=== PATIENT | male | born 1990 | race African-American/Black ===

== ENCOUNTER 2019-08-05 18:30 | Emergency (ER) | payer SELFPAY ==
[~2019-08-05] VITALS: Ht 200.7 cm; Wt 97.7 kg
[2019-08-05] MEDS ORDERED: NEOMYCIN/POLYMYXIN B/HYDROCORT 10 ML OTIC SOLUTION AU ONE (20:00)
[2019-08-05] MEDS ORDERED: AMOXICILLIN TRIHYDRATE 250 MG CAPSULE PO ONE (20:00)
[2019-08-05] MEDS ORDERED: IBUPROFEN 400 MG TABLET PO ONE (20:00)
[2019-08-05 20:44] VITALS: BP 141/78
== END 2019-08-05 20:50 | disposition home or self-care (01) ==
LOC: EMS 18:31
DX: H60.93 Unspecified otitis externa, bilateral (principal); H66.91 Otitis media, unspecified, right ear; H61.22 Impacted cerumen, left ear; F12.90 Cannabis use, unspecified, uncomplicated
CPT/HCPCS: 69209

== ENCOUNTER 2021-08-01 09:15 | Emergency (ER) | payer SELFPAY ==
[~2021-08-01] VITALS: Ht 198.1 cm; Wt 100.0 kg
[2021-08-01 10:36] VITALS: BP 149/81
== END 2021-08-01 10:37 | disposition home or self-care (01) ==
LOC: EMS 09:15
DX: S62.327A Displaced fracture of shaft of fifth metacarpal bone, left hand, initial encounter for closed fracture (principal); W22.8XXA Striking against or struck by other objects, initial encounter; Y93.89 Activity, other specified; Y92.89 Other specified places as the place of occurrence of the external cause; Y99.8 Other external cause status
CPT/HCPCS: 99283